=== PATIENT | female | born 1960 | race Caucasian/White ===

== ENCOUNTER 2024-07-21 14:42 | Day surgery (SDC) | payer MEDICARE, SELFPAY ==
[2024-07-21 15:22] VITALS: BP 113/79; PULSE 90; RESP 18; TEMP 36.9; O2SAT 97; BMI 15.6
[2024-07-21 15:52] VITALS: BP 115/66; PULSE 79; RESP 18; O2SAT 97
[2024-07-21 15:53] VITALS: BP 115/66; PULSE 79; RESP 18; O2SAT 97
--- NOTE | 2024-07-21 16:03 | EXP.PAIN.PRO ---
Procedure Date: 07/21/24 Time: 16:03 Anesthesiologist:: Britney Mensah APRN Complications:: None Pre-procedure Diagnosis:: Degenerative disc disease, chronic back pain, multiple sclerosis Post-procedure Diagnosis:: same Indications for Procedure:: Patient is a pleasant 63-year-old female who presents today as a new patient as well as for intrathecal refill and reprogram. Patient rates her pain a 9 out of 10. She denies any new trauma or injury. Patient does have a intrathecal pain pump in place with morphine 10 mg/mL with a daily dose of 0.988 mg/day and baclofen 2500 mcg/mL with a daily dose of 247 mcg/day. She denies any side effects however is requesting an increase. Patient does also take oral baclofen 60 mg. Patient states that she has had her original pump since 2016 and then had it replaced in 2022 with her current pump. It is a [employer] device. Patient does state that they were seeing a provider in [place] who would refill this however they have not seen him since last year around January. Patient does present today with her spouse at her appointment. He is her primary caregiver and does help with anything she needs. Patient spouse does state that she had some seizures in February that really aggravated her overall pain symptoms and felt like before this the pump was doing better with the dosage. He does also make mention that she ended up being hospitalized at 1 point as well and ended up having her pump had ran dry and this also caused significant pain and withdrawal symptoms. Patient states that she has pain all over. Her Christiano was reviewed. Physical Exam: General: Alert and oriented x3, no acute distress, pleasant and cooperative Lungs: Respirations even and unlabored, symmetrical chest expansion Eyes: PERRL Musculoskeletal: Flexion and extension of lumbar [spine] somewhat guarded secondary to pain, [antalgic gait noted] Neurological: Speech clear, no gross sensory deficit Procedure Details:: Informed consent was obtained and the risk and benefits of the procedure were explained to the patient. The patient had noninvasive monitoring placed including noninvasive blood pressure cuff and pulse oximeter. Patient's pump was interrogated. The area over the pump was cleansed with chlorhexidine as a cleansing solution. In sterile fashion the pump was accessed with a 22-gauge needle. Approximately 2.8 mls of the pump solution was removed and discarded appropriately. The pump was then refilled with 20 mL's of milligrams per mL of baclofen 2500 micrograms per day. The needle was withdrawn and a bandage was placed over the puncture site. The infusion rate was reprogrammed and increased 10% to morphine 1.087 mg/day and baclofen 271.7 mcg/day. The patient tolerated well with no complication. Plan and Disposition:: Patient tolerated the procedure well with no complications and was discharged neurologically intact. Patient will return to clinic on or before their next intrathecal refill date. We will see the patient back in the clinic at the next intrathecal refill. Patient has been instructed to contact the clinic with any concerns before the next appointment. Dr. Fang has reviewed this note and agrees with this plan of care. This note was dictated using voice recognition software and make contain errors or omissions. -- It Is medically necessary for this patient to continue to have their intrathecal pump refilled at regular intervals. This patient had an intrathecal pain pump implanted after meeting criteria of chronic intractable pain for greater than 3 months and failing conservative treatments. Patient has committed and been compliant to the treatment plan and all planned follow up care. Since implantation of the intrathecal pain pump, the patient has had decreased pain and been more functional. Oral medications have been reduced including intake of oral opioids. Patient continues to do well with intrathecal therapy with decrease in pain symptoms and increase in functional status. Stopping intrathecal medications can lead to life threatening withdrawal, seizures, cardiac arrest, severe pain, and possible . Pumps that are not refilled at regular intervals can be damages and cause and need for replacement. We continually titrate dose and concentration to optimize pain relief and function. We are limited in concentration for certain drugs to safely deliver medications through the pump and stay within the recommendations from the Polyanalges[employer] Consensus Committee Guidelines. Depending on dose and concentration these pumps may need to be refilled sooner than 3 months as we titrate. A UDS is needed to verify patient's compliance with our office pain contract. This is ordered based off specific treatments related to chronic pain with the potential to abuse certain medications.
[2024-07-21 16:10] VITALS: BP 121/73; PULSE 83; RESP 18; TEMP 36.8; O2SAT 97
== END 2024-07-21 16:10 | disposition home or self-care (01) ==
PROVIDERS: Visit Provider Nurse Practitioner Family
DX: M54.9 Dorsalgia, unspecified (principal); G89.29 Other chronic pain; G35 Multiple sclerosis
CPT/HCPCS: 62370; 99202; G0463

== ENCOUNTER 2024-08-29 10:42 | Outpatient (POV) | payer MEDICARE, SELFPAY ==
--- NOTE | 2024-08-29 10:45 | P.PCN_ITS ---
Procedure Date: 08/29/24 Time: 11:02 Anesthesiologist:: Britney Mensah APRN Complications:: None Pre-procedure Diagnosis:: Degenerative disc disease, Multiple sclerosis, chronic pain syndrome Post-procedure Diagnosis:: Same Indications for Procedure:: Patient is a pleasant 63-year-old female who presents today for intrathecal adjustment and reprogram. Patient rates her pain today a 7 out of 10. She does state that about 2 months ago she did have 1 seizure on August 01 and actually was pain-free for about a week. She states that this was very short-lived and that when the pain did come back it was full force. Patient denies any other changes from her last appointment. Patient is currently managed with intrathecal morphine 10 mg/mL with a daily dose of 1.087 mg/day and baclofen 2500 mcg/mL with a daily dose of 271.7 mcg/day. She denies any side effects. She is asking if we can do a small increase. Patient's spouse does make mention that they did get the [facility] at home adjustments approved and so they will just need to come into our office for the refills. Her Christiano has been reviewed. Patient does not show anything here within the [place] region. We are contacting the patient's primary care in [place] to get a copy of her ongoing Christiano. Physical Exam: General: Alert and oriented x3, no acute distress, pleasant and cooperative Lungs: Respirations even and unlabored, symmetrical chest expansion Eyes: PERRL Musculoskeletal: Flexion and extension of lumbar [spine] somewhat guarded secondary to pain, [antalgic gait noted] Neurological: Speech clear, no gross sensory deficit Procedure Details:: Informed consent was obtained and the risk and benefits of the procedure were explained to the patient. Patient did have noninvasive monitoring was placed including noninvasive blood pressure cuff and pulse oximeter. Patient's pump was interrogated and was reprogrammed to baclofen 299.1 mcg/day and morphine 1.196 mg/day. The patient tolerated the procedure well with no complications. Plan and Disposition:: Patient tolerated the procedure well with no complications and was discharged neurologically intact. Patient's primary care doctor is Dr. Maharaj out of [facility]. patient will return to clinic on or before their next intrathecal refill date. We will see the patient back in the clinic at the next intrathecal refill. Patient has been instructed to contact the clinic with any concerns before the next appointment. Dr. Fang has reviewed this note and agrees with this plan of care. This note was dictated using voice recognition software and make contain errors or omissions. -- It Is medically necessary for this patient to continue to have their intrathecal pump refilled at regular intervals. This patient had an intrathecal pain pump implanted after meeting criteria of chronic intractable pain for greater than 3 months and failing conservative treatments. Patient has committed and been compliant to the treatment plan and all planned follow up care. Since implantation of the intrathecal pain pump, the patient has had decreased pain and been more functional. Oral medications have been reduced including intake of oral opioids. Patient continues to do well with intrathecal therapy with decrease in pain symptoms and increase in functional status. Stopping intrathecal medications can lead to life threatening withdrawal, seizures, cardiac arrest, severe pain, and possible . Pumps that are not refilled at regular intervals can be damages and cause and need for replacement. We continually titrate dose and concentration to optimize pain relief and function. We are limited in concentration for certain drugs to safely deliver medications through the pump and stay within the recommendations from the Polyanalgesic Consensus Committee Guidelines. Depending on dose and concentration these pumps may need to be refilled sooner than 3 months as we titrate. A UDS is needed to verify patient's compliance with our office pain contract. This is ordered based off specific treatments related to chronic pain with the potential to abuse certain medications.
[2024-08-29 11:46] VITALS: BP 108/81; PULSE 76; RESP 14; O2SAT 96; BMI 14.6
== END 2024-08-29 23:59 | disposition home or self-care (01) ==
PROVIDERS: Visit Provider Nurse Practitioner Family
DX: M54.9 Dorsalgia, unspecified (principal); G89.29 Other chronic pain; G35 Multiple sclerosis
CPT/HCPCS: 62368; 99212; G0463

== ENCOUNTER 2024-10-07 11:14 | Day surgery (SDC) | payer MEDICARE, SELFPAY ==
[2024-10-07 11:22] VITALS: BP 117/73; PULSE 71; RESP 16; O2SAT 98; BMI 14.2
--- NOTE | 2024-10-07 11:32 | P.HP_ITS ---
History of Present Illness *Admission Date: 10/07/24 *Reason for visit:: Intrathecal refill and reprogram; DDD *History of present illness: Degenerative disc disease [facility] Disclaimer: The information contained in this section may have been updated after the patient was seen, as this information can be updated by other users. Medical History (Updated 10/07/24 @ 11:33 by Britney Mensah APRN) Seizures Constipation Implantable intrathecal infusion pump present Multiple sclerosis Surgical History History of H/O breast augmentation History of repair of atrial septal defect Family History Mother Diabetes Obesity Hypertension Father Emphysema lung Hypertension Social History Smoking Status: Former smoker alcohol intake: never current occupational status: other Travel in the last 8 weeks?: None Other Medical History Have you received the Flu Vaccine for this season: No Have you received the Pneumonia Vaccine: No Review of Systems Review of Systems Review of systems:: pertinent systems reviewed and negative unless documented below Review of systems (narrative): Review of Systems: General: No recent weight changes, no fever, no sleep disturbances Respiratory: No cough, no shortness of air, no recurring pulmonary infections Cardiovascular/peripheral vascular: No chest pain, no palpitations, no edema, no shortness of breath Gastrointestinal: No new onset incontinence, normal bowel movements reported Genitourinary: No new onset incontinence Musculoskeletal: Chronic back pain Psychiatric: [Normal mood/affect] Neurological: [Denies weakness in extremities], [denies balance issues] Meds Home Medications and Allergies Home Medications ?Medication ?Instructions ?Recorded ?Confirmed ?Type atorvastatin 10 mg tablet 10 mg PO DAILY 07/22/24 10/07/24 History baclofen 20 mg tablet 20 mg PO TID 07/22/24 10/07/24 History escitalopram oxalate 20 mg tablet 20 mg PO DAILY 07/22/24 10/07/24 History levetiracetam 1,000 mg tablet 1,000 mg PO Q12H 07/22/24 10/07/24 History ([facility]) New Prescriptions to Start Prescriptions: Allergies Allergy/AdvReac Type Severity Reaction Status Date / Time No Known Allergies Allergy Verified 07/21/24 15:25 Exam Constitutional Constitutional: no acute distress *Routine HEENT Exam Head: Present normocephalic and atraumatic Eye: Present PERRL ENT: Present mucous membranes moist *Routine Neck Exam Neck: Present supple *Routine Respiratory Exam Respiratory: Present CTA bilaterally *Routine Cardiovascular Exam Cardiovascular: Present RRR *Routine Abdominal Exam Abdominal: Present soft *Routine Rectal Exam Rectal:: deferred *Routine Genitalia Exam Genitalia:: normal female Routine Back/Spine/Pelvis Exam Back/Spine: Present pain with flexion *Routine Skin Exam Skin: Present intact and warm *Routine Neurological Exam Neurological: Present alert and oriented X3 Routine Psychiatric Exam Psychiatric: Present normal affect and normal thought process Assessment and Plan *Assessment and plan (1) Chronic pain syndrome: Status: Acute Category: Medical Code(s): G89.4 - Chronic pain syndrome Plan Patient has been instructed to contact the clinic with any concerns before the next appointment. Dr. Fang has reviewed this note and agrees with this plan of care. This note was dictated using voice recognition software and make contain errors or omissions. All injections are used with Lidocaine, Bupivacaine and dexamethasone. Occasionally urine drug screen is needed to verify patient's compliance with our office pain contract. This is ordered based off specific treatments related to chronic pain with the potential to abuse certain medications.
--- NOTE | 2024-10-07 11:34 | EXP.PAIN.PRO ---
Procedure Date: 10/07/24 Time: 11:41 Anesthesiologist:: Britney Mensah APRN Complications:: None Pre-procedure Diagnosis:: Degenerative disc disease of lumbar spine, multiple sclerosis, chronic pain syndrome Post-procedure Diagnosis:: Same Indications for Procedure:: Patient is a pleasant 63-year-old female who presents today for intrathecal refill and reprogram. Today she rates her pain a 9 out of 10. She denies any new trauma or injury. Patient states overall she is still doing well with her pump however would like a small increase. Patient is currently managed with morphine 10 mg/mL with a daily dose of 1.196 mg/day and baclofen 2500 mcg/mL with a daily dose of 314.3 mcg/ml. Patient does state that she did recently go to one of her other providers and they did add her on gabapentin. Patient denies any other changes. Her Christiano has been reviewed and is appropriate. Physical Exam: General: Alert and oriented x3, no acute distress, pleasant and cooperative Lungs: Respirations even and unlabored, symmetrical chest expansion Eyes: PERRL Musculoskeletal: Flexion and extension of lumbar [spine] somewhat guarded secondary to pain, [antalgic gait noted] Neurological: Speech clear, no gross sensory deficit Procedure Details:: Informed consent was obtained and the risk and benefits of the procedure were explained to the patient. The patient had noninvasive monitoring placed including noninvasive blood pressure cuff and pulse oximeter. Patient's pump was interrogated. The area over the pump was cleansed with chlorhexidine as a cleansing solution. In sterile fashion the pump was accessed with a 22-gauge needle. Approximately 10.5 mls of the pump solution was removed and discarded appropriately. The pump was then refilled with 20 mL's of morphine 10 mg/mL and baclofen 2500 mcg/mL. The needle was withdrawn and a bandage was placed over the puncture site. The infusion rate was reprogrammed and increased 5% to baclofen 330.2 mcg/day and morphine 1.3 to 1 mg/day. The patient tolerated well with no complication. Plan and Disposition:: Patient tolerated the procedure well with no complications and was discharged neurologically intact. Patient will return to clinic on or before their next intrathecal refill date. We will see the patient back in the clinic at the next intrathecal refill. Patient has been instructed to contact the clinic with any concerns before the next appointment. Dr. Fang has reviewed this note and agrees with this plan of care. This note was dictated using voice recognition software and make contain errors or omissions. -- It Is medically necessary for this patient to continue to have their intrathecal pump refilled at regular intervals. This patient had an intrathecal pain pump implanted after meeting criteria of chronic intractable pain for greater than 3 months and failing conservative treatments. Patient has committed and been compliant to the treatment plan and all planned follow up care. Since implantation of the intrathecal pain pump, the patient has had decreased pain and been more functional. Oral medications have been reduced including intake of oral opioids. Patient continues to do well with intrathecal therapy with decrease in pain symptoms and increase in functional status. Stopping intrathecal medications can lead to life threatening withdrawal, seizures, cardiac arrest, severe pain, and possible . Pumps that are not refilled at regular intervals can be damages and cause and need for replacement. We continually titrate dose and concentration to optimize pain relief and function. We are limited in concentration for certain drugs to safely deliver medications through the pump and stay within the recommendations from the Polyanalgesic Consensus Committee Guidelines. Depending on dose and concentration these pumps may need to be refilled sooner than 3 months as we titrate. A UDS is needed to verify patient's compliance with our office pain contract. This is ordered based off specific treatments related to chronic pain with the potential to abuse certain medications.
[2024-10-07 11:35] VITALS: BP 117/73; PULSE 71; RESP 18; O2SAT 98
[2024-10-07 11:51] VITALS: BP 109/65; PULSE 61; RESP 16; O2SAT 98
== END 2024-10-07 11:51 | disposition home or self-care (01) ==
PROVIDERS: Visit Provider Nurse Practitioner Family
DX: G89.4 Chronic pain syndrome (principal); M51.369 Other intervertebral disc degeneration, lumbar region without mention of lumbar back pain or lower extremity pain; G35 Multiple sclerosis
CPT/HCPCS: 62370